=== PATIENT | female | born 1985 | race Caucasian/White ===

== ENCOUNTER 2023-12-23 08:34 | Emergency (ER) | payer BC ==
[2023-12-23 09:03] VITALS: BP 137/78; PULSE 126; RESP 20; TEMP 100.8; BMI 32.3
[2023-12-23 09:21] LABS: THROAT:GRP A STREP NOT DETECTED (NOTDETECTED)
== END 2023-12-23 09:40 | disposition home or self-care (01) ==
LOC: JERFT 08:34
DX: U07.1 COVID-19 (principal); R50.9 Fever, unspecified; R07.0 Pain in throat
CPT/HCPCS: 0241U-QW; 87651; 99283-25